=== PATIENT | male | born 1975 | race Hispanic/Latino ===

== ENCOUNTER 2020-01-14 02:20 | Emergency (ER) | payer OTHER ==
[2020-01-14 03:08] LABS: #Lymphocytes 1.3 thou/uL (1.20-3.40); #Monocytes 0.7 thou/uL (0.11-0.59); #Neutrophils 7.8 thou/uL (1.40-6.50); %Basophils 0.3 % (0.0-1.0); %Eosinophils 0.2 % (0.0-10.0); %Lymphocytes 13.6 % (21.0-51.0); %Monocytes 6.7 % (0.0-10.0); %Neutrophils 79.2 % (42.0-75.0); Hemoglobin 16.8 g/dL (14.0-18.0); Mean Corpuscular HGB CONC 34.6 g/dL (32.0-36.0); Mean Corpuscular Volume 92.4 fL (78.0-98.0); Mean Platelet Volume 9.4 fL (7.4-10.4); Platelet Count 240 thou/uL (130-400); RBC Distribution Width 11.7 % (11.5-14.5); Red Blood Cell (RBC) Count 5.26 mill/uL (4.70-6.10); White Blood Cell (WBC) Count 9.9 thou/uL (4.8-10.8)
[2020-01-14 03:29] LABS: ALT (SGPT) 41 U/L (8-55); AST (SGOT) 18 U/L (5-34); Albumin 4.5 g/dL (3.5-5.0); Alkaline Phosphatase 89 U/L (40-110); Anion Gap 15 mmol/L (10-20); BUN (Urea Nitrogen) 27 mg/dL (8.9-20.6); Bilirubin, Total 0.6 mg/dL (0.2-1.2); CK (CPK) 131 U/L (30-200); Calc. Creatinine Clearance 0 mL/min (70-130); Carbon Dioxide 26 mmol/L (22-29); Chloride 92 mmol/L (98-107); Estimated GFR-MDRD 77; Globulin 3.1 g/dL (2.4-3.5); Glucose 132 mg/dL (70-105); Potassium 3.4 mmol/L (3.5-5.1); Protein, Total 7.6 g/dL (6.0-8.3); Sodium 130 mmol/L (136-145)
[2020-01-14 06:28] LABS: Troponin I Less than 0.010 ng/mL (< 0.028)
[2020-01-14 11:37] LABS: SARS-CoV-2 MS2 Positive; SARS-CoV-2 N Gene Positive; SARS-CoV-2 S Gene Positive; SARS-CoV-2 orf1ab Positive
--- NOTE | 2020-01-14 12:39 | RAD ---
PORTABLE CHEST 1 VIEW: DATE: 01/14/2020. TIME: 2:39 AM. HISTORY: Chest pain. FINDINGS: The heart size is normal. No focal areas of consolidation, pleural effusions are seen. IMPRESSION: No acute process. POS: DONAL
--- NOTE | 2020-01-18 12:50 | EKG ---
Test Reason : Blood Pressure : / mmHG Vent. Rate : 091 BPM Atrial Rate : 091 BPM P-R Int : 160 ms QRS Dur : 116 ms QT Int : 374 ms P-R-T Axes : 025 072 017 degrees QTc Int : 460 ms Normal sinus rhythm Normal ECG Confirmed by CHAY ANTOINE DO ([id number]), editorial specialist WILLIAM PERALTA ([id number]) on 01/18/2020 12:49:58 PM Referred By: Confirmed By:CHAY ANTOINE DO
== END 2020-01-14 07:05 ==
LOC: ERS 02:20 → EEVIPCON 02:20 → ERS 07:05
DX: R07.9 Chest pain, unspecified (principal); G35 Multiple sclerosis; E78.5 Hyperlipidemia, unspecified; E03.9 Hypothyroidism, unspecified; I10 Essential (primary) hypertension; Z79.899 Other long term (current) drug therapy
CPT/HCPCS: 36415; 71045; 80053; 82550; 83690; 84484; 85025; 87635; 93005; 96360; 96361; U0003

== ENCOUNTER 2024-05-22 15:36 | Emergency (ER) | payer OTHER ==
[2024-05-22 16:48] LABS: #Basophils 0.03 10x3/uL (0.0-0.2); %Basophils 0.5 % (0.0-1.0); %Eosinophils 0.6 % (0.0-10.0); %Lymphocytes 20.6 % (21.0-51.0); %Monocytes 6.8 % (0.0-10.0); Hematocrit 40.1 % (42.0-52.0); Hemoglobin 14.9 g/dL (14.0-18.0); Mean Corpuscular HGB CONC 37.2 g/dL (32.0-36.0); Mean Corpuscular Hemoglobin 32.5 pg (27.0-31.0); Mean Corpuscular Volume 87.6 fL (78.0-98.0); Mean Platelet Volume 9.3 fL (7.4-10.4); Platelet Count 250 10x3/uL (130-400); RBC Distribution Width 12.3 % (11.5-14.5); Red Blood Cell (RBC) Count 4.58 mill/uL (4.70-6.10)
[2024-05-22] MEDS ORDERED: Gabapentin 400 MG CAP ONE (17:04)
[2024-05-22 17:09] LABS: Troponin I Less than 0.010 ng/mL (< 0.028)
[2024-05-22 17:12] LABS: ALT (SGPT) 26 U/L (8-55); AST (SGOT) 21 U/L (5-34); Albumin 4.1 g/dL (3.5-5.0); Alkaline Phosphatase 89 U/L (40-110); Anion Gap 12 mmol/L (10-20); BUN (Urea Nitrogen) 9 mg/dL (8.9-20.6); Bilirubin, Total 0.5 mg/dL (0.2-1.2); Calc. Creatinine Clearance 0 mL/min (70-130); Calcium 8.6 mg/dL (7.8-10.44); Carbon Dioxide 24 mmol/L (22-29); Chloride 94 mmol/L (98-107); Estimated GFR 112; Globulin 2.9 g/dL (2.4-3.5); Glucose 98 mg/dL (70-105); Potassium 4.4 mmol/L (3.5-5.1); Sodium 126 mmol/L (136-145)
[2024-05-22] MEDS ORDERED: carBAMazepine SR 300 mg Capsule PO SCH (17:30)
[2024-05-22 22:01] LABS: Troponin I Less than 0.010 ng/mL (< 0.028)
== END 2024-05-22 22:36 ==
LOC: ERS 15:36
DX: R07.89 Other chest pain (principal); E87.1 Hypo-osmolality and hyponatremia; I10 Essential (primary) hypertension; G35 Multiple sclerosis; E78.5 Hyperlipidemia, unspecified; E03.9 Hypothyroidism, unspecified; Z79.899 Other long term (current) drug therapy
CPT/HCPCS: 36415; 71045; 80053; 83880; 84484; 85025; 93005

== ENCOUNTER 2025-04-04 05:29 | Inpatient (IN) | payer OTHER ==
[2025-04-04] MEDS ORDERED: Ondansetron PF 4 MG/2 ML Vial IVP PRN (05:56)
[2025-04-04] MEDS ORDERED: Senokot S 8.6-50 MG TAB PO PRN (05:56)
[2025-04-04] MEDS ORDERED: Acetaminophen 325 MG TAB PO PRN (05:56)
[2025-04-04] MEDS ORDERED: Calcium Carbonate 500 MG ChewTAB PO PRN (05:56)
[2025-04-04 06:00] VITALS: BMI 26.3
[2025-04-04 08:02] LABS: Anion Gap 11 mmol/L (10-20); BUN (Urea Nitrogen) 5 mg/dL (8.9-20.6); Calc. Creatinine Clearance 189 mL/min (70-130); Calcium 8.2 mg/dL (7.8-10.44); Carbon Dioxide 24 mmol/L (22-29); Chloride 91 mmol/L (98-107); Glucose 91 mg/dL (70-105); Magnesium 1.9 mg/dL (1.6-2.6); Potassium 4.0 mmol/L (3.5-5.1); Sodium 122 mmol/L (136-145)
[2025-04-04] MEDS ORDERED: Glycerin Adult Supp. (12 ct jar) PR PRN (08:50)
[2025-04-04] MEDS ORDERED: Naproxen 500 MG TAB PO SCH (09:00)
[2025-04-04] MEDS: Enoxaparin 40 MG (0.4 mL) SYRINGE SC SCH (10:50)
[2025-04-04] MEDS: DULoxetine 30 MG CAP PO SCH (10:50)
[2025-04-04] MEDS: Gabapentin 400 MG CAP PO SCH (10:50)
[2025-04-04] MEDS: Lisinopril 20 MG TAB PO SCH (10:50)
[2025-04-04] MEDS: carBAMazepine 200 MG TAB PO SCH (10:50)
[2025-04-04] MEDS: Baclofen 10 MG TAB PO SCH (10:51)
[2025-04-04] MEDS: Acetaminophen 500 MG TAB PO SCH (10:57)
[2025-04-04 11:10] LABS: Osmolality, Serum 253 mOsm/kg (275-295)
[2025-04-04 13:11] LABS: Osmolality, Urine 128 mOsm/kg (50-1200)
[2025-04-04] MEDS: GLATIRAMER ACETATE 20 MG/ML SC SCH (14:30)
[2025-04-04 17:59] LABS: Anion Gap 16 mmol/L (10-20); BUN (Urea Nitrogen) 7 mg/dL (8.9-20.6); Calc. Creatinine Clearance 198 mL/min (70-130); Calcium 8.0 mg/dL (7.8-10.44); Carbon Dioxide 23 mmol/L (22-29); Chloride 94 mmol/L (98-107); Glucose 96 mg/dL (70-105); Potassium 4.0 mmol/L (3.5-5.1); Sodium 129 mmol/L (136-145)
[2025-04-04] MEDS: Lidocaine 1% w/Epinephrine 1:100K 20 ML VIAL ONE (18:49)
[2025-04-05 03:50] LABS: #Basophils 0.04 10x3/uL (0.0-0.2); #Eosinophils 0.07 10x3/uL (0.0-0.7); #Monocytes 0.56 10x3/uL (0.11-0.59); #Neutrophils 6.01 10x3/uL (1.40-6.50); %Basophils 0.5 % (0.0-1.0); %Eosinophils 0.9 % (0.0-10.0); %Lymphocytes 13.3 % (21.0-51.0); %Monocytes 7.2 % (0.0-10.0); %Neutrophils 77.8 % (42.0-75.0); Hematocrit 34.8 % (42.0-52.0); Hemoglobin 12.5 g/dL (14.0-18.0); Mean Corpuscular Hemoglobin 31.9 pg (27.0-31.0); Mean Corpuscular Volume 88.8 fL (78.0-98.0); Platelet Count 306 10x3/uL (130-400); Red Blood Cell (RBC) Count 3.92 mill/uL (4.70-6.10); White Blood Cell (WBC) Count 7.73 10x3/uL (4.8-10.8)
[2025-04-05 04:05] LABS: ALT (SGPT) 10 U/L (Less than 45); AST (SGOT) 13 U/L (11-34); Albumin 3.3 g/dL (3.1-4.5); Alkaline Phosphatase 116 U/L (40-110); Anion Gap 13 mmol/L (10-20); BUN (Urea Nitrogen) 7 mg/dL (8.9-20.6); Bilirubin, Total 0.3 mg/dL (0.3-1.2); Calc. Creatinine Clearance 216 mL/min (70-130); Calcium 8.0 mg/dL (7.8-10.44); Carbon Dioxide 24 mmol/L (22-29); Chloride 96 mmol/L (98-107); Globulin 3.2 g/dL (2.4-3.5); Glucose 97 mg/dL (70-105); Magnesium 2.0 mg/dL (1.6-2.6); Potassium 4.3 mmol/L (3.5-5.1); Sodium 129 mmol/L (136-145)
[2025-04-05] MEDS: Lidocaine 1% w/Epinephrine 1:100K 20 ML VIAL IJ SCH (10:47)
[2025-04-06 04:02] LABS: #Basophils 0.04 10x3/uL (0.0-0.2); #Eosinophils 0.07 10x3/uL (0.0-0.7); #Monocytes 0.42 10x3/uL (0.11-0.59); #Neutrophils 3.43 10x3/uL (1.40-6.50); %Basophils 0.8 % (0.0-1.0); %Eosinophils 1.4 % (0.0-10.0); %Lymphocytes 23.2 % (21.0-51.0); %Monocytes 8.1 % (0.0-10.0); %Neutrophils 66.3 % (42.0-75.0); Hematocrit 36.2 % (42.0-52.0); Hemoglobin 12.5 g/dL (14.0-18.0); Mean Corpuscular Hemoglobin 31.3 pg (27.0-31.0); Mean Corpuscular Volume 90.5 fL (78.0-98.0); Platelet Count 321 10x3/uL (130-400); Red Blood Cell (RBC) Count 4.00 mill/uL (4.70-6.10); White Blood Cell (WBC) Count 5.17 10x3/uL (4.8-10.8)
[2025-04-06 04:24] LABS: Anion Gap 13 mmol/L (10-20); BUN (Urea Nitrogen) 11 mg/dL (8.9-20.6); Calc. Creatinine Clearance 177 mL/min (70-130); Calcium 8.2 mg/dL (7.8-10.44); Carbon Dioxide 24 mmol/L (22-29); Chloride 97 mmol/L (98-107); Glucose 89 mg/dL (70-105); Potassium 4.3 mmol/L (3.5-5.1); Sodium 130 mmol/L (136-145)
[2025-04-06] MEDS: HYDROcodone/Acetaminophen 5/325 mg Tablet PO PRN (21:46)
[2025-04-07 04:58] LABS: Anion Gap 12 mmol/L (10-20); BUN (Urea Nitrogen) 9 mg/dL (8.9-20.6); Calc. Creatinine Clearance 212 mL/min (70-130); Calcium 8.1 mg/dL (7.8-10.44); Carbon Dioxide 23 mmol/L (22-29); Chloride 92 mmol/L (98-107); Glucose 93 mg/dL (70-105); Potassium 4.0 mmol/L (3.5-5.1); Sodium 123 mmol/L (136-145)
[2025-04-07 11:44] LABS: Anion Gap 11 mmol/L (10-20); BUN (Urea Nitrogen) 7 mg/dL (8.9-20.6); Calc. Creatinine Clearance 208 mL/min (70-130); Calcium 8.3 mg/dL (7.8-10.44); Carbon Dioxide 24 mmol/L (22-29); Chloride 93 mmol/L (98-107); Glucose 104 mg/dL (70-105); Potassium 4.1 mmol/L (3.5-5.1); Sodium 124 mmol/L (136-145)
[2025-04-07 14:39] LABS: Sodium 124 mmol/L (136-145)
[2025-04-07 19:42] LABS: Anion Gap 13 mmol/L (10-20); BUN (Urea Nitrogen) 9 mg/dL (8.9-20.6); Calc. Creatinine Clearance 194 mL/min (70-130); Calcium 8.3 mg/dL (7.8-10.44); Carbon Dioxide 23 mmol/L (22-29); Chloride 94 mmol/L (98-107); Glucose 96 mg/dL (70-105); Potassium 4.5 mmol/L (3.5-5.1); Sodium 125 mmol/L (136-145)
[2025-04-08 04:04] LABS: #Basophils 0.04 10x3/uL (0.0-0.2); #Eosinophils 0.06 10x3/uL (0.0-0.7); #Monocytes 0.40 10x3/uL (0.11-0.59); #Neutrophils 2.57 10x3/uL (1.40-6.50); %Basophils 0.9 % (0.0-1.0); %Eosinophils 1.4 % (0.0-10.0); %Lymphocytes 29.8 % (21.0-51.0); %Monocytes 9.1 % (0.0-10.0); %Neutrophils 58.6 % (42.0-75.0); Hematocrit 36.9 % (42.0-52.0); Hemoglobin 13.0 g/dL (14.0-18.0); Mean Corpuscular Hemoglobin 30.8 pg (27.0-31.0); Mean Corpuscular Volume 87.4 fL (78.0-98.0); Platelet Count 338 10x3/uL (130-400); Red Blood Cell (RBC) Count 4.22 mill/uL (4.70-6.10); White Blood Cell (WBC) Count 4.39 10x3/uL (4.8-10.8)
[2025-04-08 04:28] LABS: Anion Gap 11 mmol/L (10-20); BUN (Urea Nitrogen) 14 mg/dL (8.9-20.6); Calc. Creatinine Clearance 181 mL/min (70-130); Calcium 8.2 mg/dL (7.8-10.44); Carbon Dioxide 23 mmol/L (22-29); Chloride 95 mmol/L (98-107); Glucose 85 mg/dL (70-105); Potassium 4.4 mmol/L (3.5-5.1); Sodium 125 mmol/L (136-145)
[2025-04-08 07:54] LABS: Anion Gap 8 mmol/L (10-20); BUN (Urea Nitrogen) 12 mg/dL (8.9-20.6); Calc. Creatinine Clearance 195 mL/min (70-130); Calcium 8.0 mg/dL (7.8-10.44); Carbon Dioxide 26 mmol/L (22-29); Chloride 94 mmol/L (98-107); Glucose 100 mg/dL (70-105); Potassium 4.2 mmol/L (3.5-5.1); Sodium 124 mmol/L (136-145)
[2025-04-08 16:09] LABS: Anion Gap 11 mmol/L (10-20); BUN (Urea Nitrogen) 11 mg/dL (8.9-20.6); Calc. Creatinine Clearance 183 mL/min (70-130); Calcium 7.8 mg/dL (7.8-10.44); Carbon Dioxide 25 mmol/L (22-29); Chloride 95 mmol/L (98-107); Glucose 100 mg/dL (70-105); Potassium 4.1 mmol/L (3.5-5.1); Sodium 127 mmol/L (136-145)
[2025-04-09 04:06] LABS: #Basophils 0.04 10x3/uL (0.0-0.2); #Eosinophils 0.07 10x3/uL (0.0-0.7); #Monocytes 0.31 10x3/uL (0.11-0.59); #Neutrophils 2.51 10x3/uL (1.40-6.50); %Basophils 0.9 % (0.0-1.0); %Eosinophils 1.6 % (0.0-10.0); %Lymphocytes 32.0 % (21.0-51.0); %Monocytes 7.1 % (0.0-10.0); %Neutrophils 57.9 % (42.0-75.0); Hematocrit 36.2 % (42.0-52.0); Hemoglobin 12.6 g/dL (14.0-18.0); Mean Corpuscular Hemoglobin 31.2 pg (27.0-31.0); Mean Corpuscular Volume 89.6 fL (78.0-98.0); Platelet Count 324 10x3/uL (130-400); Red Blood Cell (RBC) Count 4.04 mill/uL (4.70-6.10); White Blood Cell (WBC) Count 4.34 10x3/uL (4.8-10.8)
[2025-04-09 04:17] LABS: Anion Gap 12 mmol/L (10-20); BUN (Urea Nitrogen) 17 mg/dL (8.9-20.6); Calc. Creatinine Clearance 195 mL/min (70-130); Calcium 8.0 mg/dL (7.8-10.44); Carbon Dioxide 24 mmol/L (22-29); Chloride 97 mmol/L (98-107); Glucose 99 mg/dL (70-105); Potassium 4.5 mmol/L (3.5-5.1); Sodium 128 mmol/L (136-145)
[2025-04-09 08:54] LABS: Anion Gap 8 mmol/L (10-20); BUN (Urea Nitrogen) 13 mg/dL (8.9-20.6); Calc. Creatinine Clearance 206 mL/min (70-130); Calcium 7.9 mg/dL (7.8-10.44); Carbon Dioxide 26 mmol/L (22-29); Chloride 97 mmol/L (98-107); Glucose 91 mg/dL (70-105); Potassium 4.1 mmol/L (3.5-5.1); Sodium 127 mmol/L (136-145)
[2025-04-09 13:19] LABS: Anion Gap 9 mmol/L (10-20); BUN (Urea Nitrogen) 12 mg/dL (8.9-20.6); Calc. Creatinine Clearance 193 mL/min (70-130); Calcium 8.1 mg/dL (7.8-10.44); Carbon Dioxide 26 mmol/L (22-29); Chloride 97 mmol/L (98-107); Glucose 83 mg/dL (70-105); Potassium 4.2 mmol/L (3.5-5.1); Sodium 128 mmol/L (136-145)
[2025-04-10 07:35] LABS: #Basophils 0.05 10x3/uL (0.0-0.2); #Eosinophils 0.07 10x3/uL (0.0-0.7); #Monocytes 0.34 10x3/uL (0.11-0.59); #Neutrophils 1.79 10x3/uL (1.40-6.50); %Basophils 1.4 % (0.0-1.0); %Eosinophils 2.0 % (0.0-10.0); %Lymphocytes 36.3 % (21.0-51.0); %Monocytes 9.6 % (0.0-10.0); %Neutrophils 50.4 % (42.0-75.0); Hematocrit 34.5 % (42.0-52.0); Hemoglobin 12.0 g/dL (14.0-18.0); Mean Corpuscular Hemoglobin 31.4 pg (27.0-31.0); Mean Corpuscular Volume 90.3 fL (78.0-98.0); Platelet Count 312 10x3/uL (130-400); Red Blood Cell (RBC) Count 3.82 mill/uL (4.70-6.10); White Blood Cell (WBC) Count 3.55 10x3/uL (4.8-10.8)
[2025-04-10 07:51] LABS: Anion Gap 10 mmol/L (10-20); BUN (Urea Nitrogen) 13 mg/dL (8.9-20.6); Calc. Creatinine Clearance 199 mL/min (70-130); Calcium 7.9 mg/dL (7.8-10.44); Carbon Dioxide 26 mmol/L (22-29); Chloride 97 mmol/L (98-107); Glucose 97 mg/dL (70-105); Potassium 3.7 mmol/L (3.5-5.1); Sodium 129 mmol/L (136-145)
[2025-04-10] MEDS: carBAMazepine 200 MG TAB PO SCH (08:36)
[2025-04-10 09:25] LABS: Anion Gap 10 mmol/L (10-20); BUN (Urea Nitrogen) 12 mg/dL (8.9-20.6); Calc. Creatinine Clearance 203 mL/min (70-130); Calcium 7.8 mg/dL (7.8-10.44); Carbon Dioxide 27 mmol/L (22-29); Chloride 96 mmol/L (98-107); Glucose 116 mg/dL (70-105); Potassium 4.2 mmol/L (3.5-5.1); Sodium 129 mmol/L (136-145)
[2025-04-10 14:38] LABS: Anion Gap 10 mmol/L (10-20); BUN (Urea Nitrogen) 10 mg/dL (8.9-20.6); Calc. Creatinine Clearance 196 mL/min (70-130); Calcium 7.8 mg/dL (7.8-10.44); Carbon Dioxide 27 mmol/L (22-29); Chloride 97 mmol/L (98-107); Glucose 91 mg/dL (70-105); Potassium 4.1 mmol/L (3.5-5.1); Sodium 130 mmol/L (136-145)
[2025-04-11 04:21] LABS: Anion Gap 9 mmol/L (10-20); BUN (Urea Nitrogen) 14 mg/dL (8.9-20.6); Calc. Creatinine Clearance 206 mL/min (70-130); Calcium 7.8 mg/dL (7.8-10.44); Carbon Dioxide 25 mmol/L (22-29); Chloride 100 mmol/L (98-107); Glucose 81 mg/dL (70-105); Potassium 4.1 mmol/L (3.5-5.1); Sodium 130 mmol/L (136-145)
[2025-04-11 16:58] VITALS: BMI 26.8
[2025-04-11] MEDS: carBAMazepine 200 MG TAB PO SCH (20:14)
[2025-04-12 03:33] LABS: #Basophils 0.04 10x3/uL (0.0-0.2); #Eosinophils 0.09 10x3/uL (0.0-0.7); #Monocytes 0.44 10x3/uL (0.11-0.59); #Neutrophils 1.66 10x3/uL (1.40-6.50); %Basophils 1.0 % (0.0-1.0); %Eosinophils 2.3 % (0.0-10.0); %Lymphocytes 41.7 % (21.0-51.0); %Monocytes 11.5 % (0.0-10.0); %Neutrophils 43.2 % (42.0-75.0); Hematocrit 33.7 % (42.0-52.0); Hemoglobin 11.4 g/dL (14.0-18.0); Mean Corpuscular Hemoglobin 31.1 pg (27.0-31.0); Mean Corpuscular Volume 91.8 fL (78.0-98.0); Platelet Count 281 10x3/uL (130-400); Red Blood Cell (RBC) Count 3.67 mill/uL (4.70-6.10); White Blood Cell (WBC) Count 3.84 10x3/uL (4.8-10.8)
[2025-04-12 03:55] LABS: Anion Gap 11 mmol/L (10-20); BUN (Urea Nitrogen) 14 mg/dL (8.9-20.6); Calc. Creatinine Clearance 193 mL/min (70-130); Calcium 7.7 mg/dL (7.8-10.44); Carbon Dioxide 23 mmol/L (22-29); Chloride 103 mmol/L (98-107); Glucose 91 mg/dL (70-105); Potassium 4.1 mmol/L (3.5-5.1); Sodium 133 mmol/L (136-145)
[2025-04-12 11:16] VITALS: TEMP 97.8
[2025-04-12 12:27] VITALS: BP 131/79
== END 2025-04-12 14:14 | DRG 644 ==
LOC: IMCU/EMU 05:29 → EEVIPCON 05:29 → PCU 20:01
PROVIDERS: ADMIT Internal Medicine; ATTEND Hospitalist
DX: E22.2 Syndrome of inappropriate secretion of antidiuretic hormone (principal); L02.416 Cutaneous abscess of left lower limb; S22.41XA Multiple fractures of ribs, right side, initial encounter for closed fracture; G35 Multiple sclerosis; E78.5 Hyperlipidemia, unspecified; K59.00 Constipation, unspecified; E03.9 Hypothyroidism, unspecified; E87.8 Other disorders of electrolyte and fluid balance, not elsewhere classified; I12.9 Hypertensive chronic kidney disease with stage 1 through stage 4 chronic kidney disease, or unspecified chronic kidney disease; N18.1 Chronic kidney disease, stage 1; D63.1 Anemia in chronic kidney disease; W18.30XA Fall on same level, unspecified, initial encounter; G62.9 Polyneuropathy, unspecified; B95.8 Unspecified staphylococcus as the cause of diseases classified elsewhere; R33.9 Retention of urine, unspecified; N32.89 Other specified disorders of bladder; Z91.199 Patient's noncompliance with other medical treatment and regimen due to unspecified reason; Z88.8 Allergy status to other drugs, medicaments and biological substances; Z79.899 Other long term (current) drug therapy; Z79.2 Long term (current) use of antibiotics; Z91.018 Allergy to other foods; Z91.010 Allergy to peanuts
CPT/HCPCS: 36415; 71250; 71260; 74177; 76999; 80048; 80053; 81001; 82570; 83605; 83690; 83735; 83880; 83930; 83935; 84300; 84443; 84484; 85025; 87070; 87077; 87186; 87205; 93005; 96374; 97139; J0295; J1650; J2270; Q9967